=== PATIENT | male | born 1985 | race Caucasian/White ===

== ENCOUNTER 2022-06-05 06:30 | Day surgery (SDC) | payer BC ==
[~2022-06-05 06:30] MED LIST: Lactated Ringers 1,000 ML IV SCH; Sodium Chloride 0.9% 10 ML Syringe FLUSH PRN
[2022-06-05] MEDS ORDERED: Ketorolac 30 MG/ML SDV IVPUSH ONE (06:31)
[2022-06-05] MEDS ORDERED: Ondansetron 4 MG/2 ML SDV IVPUSH ONE (06:31)
[2022-06-05] MEDS ORDERED: Midazolam 1 MG/ML 2 ML SDV IV ONE (06:31)
[2022-06-05] MEDS ORDERED: Dexamethasone 4 MG/ML 5 ML MDV IVPUSH ONE (06:31)
[2022-06-05] MEDS ORDERED: Propofol 200 MG/20 ML SDV IV ONE (06:31)
[2022-06-05] MEDS ORDERED: fentaNYL 100 MCG/2 ML SDV IV ONE (06:31)
[2022-06-05] MEDS ORDERED: ceFAZolin 2 GM Vial IVPUSH ONE (07:15)
[2022-06-05] MEDS ORDERED: ceFAZolin 2 GM in Sodium Chloride 0.9% 100 ML IV ONE (07:15)
[2022-06-05] MEDS ORDERED: Bupivacaine 0.5% 30 ML SDV INJECT ONE (07:46)
[2022-06-05] MEDS ORDERED: Lidocaine 1% with EPINEPHrine 1:100,000 20 ML MDV INJECT ONE (07:46)
== END 2022-06-05 10:58 | disposition home or self-care (01) ==
LOC: FB.SDS 06:30
PROVIDERS: ATTEND Surgery
DX: K42.0 Umbilical hernia with obstruction, without gangrene (principal); Z98.890 Other specified postprocedural states
CPT/HCPCS: 00750; J0690; J1100; J1885; J2250; J2405; J2704; J3010; J3490; J7120